=== PATIENT | male | born 2000 | race Two or more races ===

== ENCOUNTER 2024-08-29 13:50 | Emergency (ER) | payer OTHER ==
[~2024-08-29] VITALS: Ht 172.7 cm; Wt 61.7 kg
[2024-08-29 14:05] VITALS: PULSE 70; RESP 16; TEMP 98.1; O2SAT 98
[2024-08-29] MEDS ORDERED: KETOROLAC TROMETHAMINE 60 MG/2 ML VIAL ONE (14:10)
[2024-08-29] MEDS: KETOROLAC TROMETHAMINE 60 MG/2 ML VIAL IM ONE (14:16)
== END 2024-08-29 14:46 | disposition home or self-care (01) ==
LOC: ER 14:18
DX: S62.396D Other fracture of fifth metacarpal bone, right hand, subsequent encounter for fracture with routine healing (principal); W23.2XXD Caught, crushed, jammed or pinched between a moving and stationary object, subsequent encounter
CPT/HCPCS: 99283; J1885